=== PATIENT | male | born 1955 | race Caucasian/White ===

== ENCOUNTER 2023-02-02 16:22 | Emergency (ER) | payer OTHER, SELFPAY ==
--- NOTE | 2023-02-02 16:29 | ED_ITS ---
HPI - General Adult General Chief complaint: Cardiac Arrest/CPR Stated complaint: other Time Seen by Provider: 02/02/23 16:29 History of Present Illness HPI narrative: Patient is a 67-year-old male who is presenting by EMS in cardiopulmonary arrest. Patient lives at home with his . Patient was helping getting boxes from upstairs to downstairs, there is only 3 steps approximately that are involved. Patient has had no complaints of chest pain or shortness of breath today. Patient was sitting in a chair in the family room, Patient had a quick shaking episode and then patient's noticed that he was not responding. Patient had a shaking episode, was questioning whether it was a seizure or not. Patient has no history of seizures. Patient has a history of diabetes, hypertension, otherwise has no cardiac history that we are aware of. Patient's had no recent falls, traumas. \ EMS arrived, it was reported the patient was in PEA. Patient was given 2 rounds of epinephrine, and a 300 mg of amiodarone for protocol. There was no signs of ventricular fibrillation, patient was not defibrillated. Patient was intubated at the scene, with a 7.0 ET tube. Patient had a IO to his right tibia. CPR was in progress and patient arrived. Patient brought back to trauma room 5. Review of Systems ROS Narrative Review of systems Limited to family and EMS secondary to cardiopulmonary arrest. Exam Narrative Exam Narrative: Nurses note and vital signs reviewed and patient is not hypoxic. General: The patient appears well and in no apparent distress. Patient is resting comfortably on cart. Patient is not toxic, lethargic, or listless Skin: Warm, dry, no pallor noted. There is no rash noted. No petechiae, purpura. Head: Normocephalic, atraumatic Eye: Normal conjunctiva, no drainage, EOMI. PERRL Ears, Nose, Mouth, and Throat: oral mucosa is moist. Nares patent. Mouth without vesicles. Cardiovascular: Regular Rate and Rhythm, no murmur, gallop, rub Respiratory: Patient is in no distress, no accessory muscle use, lungs are clear to auscultation, no wheezing, rales or rhonchi Back: non-tender, no CVA tenderness bilaterally to percussion. No CT LS midline pain GI: soft, no tenderness to palpation, no masses appreciated. No rebound, guarding, or rigidity noted. No flank pain bilateral, No distention Musculoskeletal: Patient has full range of motion of all of the extremities, no motor, sensory, or focal neurological deficits Neurological: A&O x3, normal speech Psychiatric: Cooperative Medical Decision Making MDM Narrative Medical decision making narrative: Patient arrives in cardiopulmonary arrest. CPR was in progress. There is wot-paeot-fkca been done as well. Patient was given 2 doses of epinephrine and 300 mg of amiodarone prior to arrival. EMS staff told me that amiodarone was given per protocol. It was noted the patient is PEA when they arrived. Patient never was in ventricular fibrillation, patient never had been defibrillated. EMS had placed the ET tube, 7.0 ET tube at approximately 23 at the teeth. Patient had no place to the right tibia. Please see ACLS sheet for protocols And medications that have been given. When patient arrived, CPR was continued. Patient was given a dose of epi. Pulse in rate and rhythm were checked, patient remained in asystole with no pulse, CPR was continued again. I was able to verify patient's ET tube placement with a 4?oh Mac blade. Patient had continuous bloody sputum/fluid/blood coming from the ET tube for unknown reason. Continue suctioning was done by respiratory staff. Patient had no evidence of any type of trauma that was noted to patient's teeth, tongue. Dentition remained intact. Unknown where the bloody fluid was coming from the ET tube. Patient is having mild blood coming in his mouth as well, but most of it was coming up through the ET tube. It very well could've been secondary to rib fractures or hemothorax secondary to see this was never able to be confirmed on chest x-ray. Several rounds of CPR were done, several pulse checks, rate and rhythm checks were done. Patient never had a pulse. Patient had never had spontaneous respirations. Patient was in asystole entire time in the Emergency Room. Patient most likely arrived on arrival. With ultrasound, Dr. Aviles, myself, was able to verify there was no cardiac activity. A 2nd IO was placed into patient's right tibia along with multiple people taking turns CPR. Patient most likely was on arrival for EMS staff as well, they never had a sustainable pulse. Time of was 1426. Greater than 30?40 minutes was spent with greater than 20+ family members that were in the Emergency Room with multiple visits to patient's , children, brothers and sisters and extended family offered condolences, explaining EMS. Work at their home and on arrival to the Emergency Room, Emergency Room Efforts and trying to recess of patient without success. I have spoken to Dr. Jorge, he will sign the certificate. I spoken to Dr. Montenegro,Patient is not a cover stitch machine operator's case. Critical care time 55 minutes exclusive from separate billable procedures that were performed. The following was considered in the determination of critical care but not limited to the level of medical decision making, intensive cardiac and/or respiratory monitoring, frequent vital sign monitoring, evaluation of laboratory studies, evaluation of radiographic studies, oxygen monitoring, and constant monitoring and speaking to family at bedside Discharge Plan Discharge Patient Disposition: Date/Time: 02/02/23 16:26 Discharge Date/Time: 02/02/23 18:54
[2023-02-02 16:46] VITALS: BMI 55.4
--- NOTE | 2023-02-02 17:29 | PC.NURSE ---
pt arrived to er at 1616 per ems with CPR in progress. pt was intubated with BVM. pt arrived with IO in right lower extremity. RN inserted 2nd IO in left lower extremity. CPR continued until TOD at 1626. See code blue sheet.
== END 2023-02-02 18:54 | disposition expired ==
PROVIDERS: Emergency Provider Emergency Medicine
DX: I46.9 Cardiac arrest, cause unspecified (principal); E11.9 Type 2 diabetes mellitus without complications; I10 Essential (primary) hypertension; E66.9 Obesity, unspecified; Z68.43 Body mass index [BMI] 50.0-59.9, adult
CPT/HCPCS: 31720; 36680; 92950; 99285